=== PATIENT | male | born 1990 | race Caucasian/White ===

== ENCOUNTER → 2016-08-17 | Outpatient (CLI) | payer OTHER | END | disposition home or self-care (01) | LOC: MW.CHFP 14:48 | PROVIDERS: ATTEND Family Medicine | DX: E07.9 Disorder of thyroid, unspecified (principal) | CPT/HCPCS: 36415; 84439; 84443; 84445; 84481; 86376; 86800; 93005 ==

== ENCOUNTER → 2016-08-30 | Outpatient (CLI) | payer OTHER | END | disposition home or self-care (01) | LOC: MW.MNT 13:11 | PROVIDERS: ATTEND Family Medicine | DX: E66.09 Other obesity due to excess calories (principal); Z68.41 Body mass index [BMI] 40.0-44.9, adult | CPT/HCPCS: 97802 ==

== ENCOUNTER 2019-06-17 14:25 | Observation (INO) | payer BC, OTHER ==
[2019-06-17] MEDS ORDERED: Aspirin 81 MG Tab.Chew PO ONE (15:23)
--- NOTE | 2019-06-17 15:34 | CR ---
Chest: 2 views of the chest were obtained. Comparison: No prior chest imaging. Heart size and mediastinum are normal. Lungs are clear with no acute parenchymal change. Bony structures appear within normal limits for the patient's age. Impression: 1. Nothing acute is appreciated on 2 view chest x-ray. Diagnostic code #1 This report was dictated in [place] Standard Time
[2019-06-17 15:46] LABS: BLOOD UREA NITROGEN,BUN 13 mg/dL (7.0-18.0); CARBON DIOXIDE,CO2 26.4 mmol/L (21.0-32.0); CHLORIDE,CL 105 mmol/L (98-107); GLUCOSE RANDOM 102 mg/dL (74-106); LIPASE 84 U/L (73-393); POTASSIUM,K 4.1 mmol/L (3.5-5.1); SODIUM,NA 139 mmol/L (136-148)
--- NOTE | 2019-06-17 16:32 | EDM.PDOC ---
ED [facility] GENERAL MEDICAL PROBLEM - General Chief Complaint: Chest Pain Stated Complaint: CHEST PAIN Time Seen by Provider: 06/17/19 14:31 - History of Present Illness INITIAL COMMENTS - FREE TEXT/NARRATIVE: HPI 29-year-old obese male smoker presents for evaluation of ~3 weeks of poorly characterized left-sided substernal chest squeezing that is worsened by physical activity and relieved by rest is more significant today. No fevers, chills, cough, prior DVT or PE. Patient denies recent immobilization, leg trauma , estrogen use, surgery in the last four weeks, hemoptysis, or malignancy in the last 6 months. M/S/F/SocHx notable for: please see HPI; remainder reviewed with patient and in chart. ROS: Negative constitutional, eye, cardiovascular, pulmonary, GI, , MSK, skin , neurologic, psychiatric, endocrine unless noted in the HPI. Exam HR 79, RR 17, BP 151/101 T 36.2C, SaO2 96% on room air. Gen: Pleasant, non-toxic appearing, resting comfortably. HEENT: NC, AT, PEERL, EOMI. Resp: Clear to auscultation bilaterally, normal work of breathing. Card: RRR with no M/R/G, no crackles in lung bases, no pedal edema, no JVD appreciated. GI: NT/ND Vascular: Both ankles, calves, and thighs of equal size, no calf tenderness to palpation bilaterally. MSK: No chest wall TTP. No visible deformities, strength and tone WNL. Skin: Normal color with no visible lesions. Neuro: AO x 3, no facial asymmetry, vision and hearing WNL. Psych: Mood and affect appropriate. Labs / Imaging (pertinent): WBC 5.76, Hb 15.2, Na 139, K 4.1, AST 19, ALT 38, total bilirubin 0.4, alkaline phosphatase 63. Troponin <0.050 d-dimer 0.33. EKG: SR at 76 bpm, no KY segment depressions, nonspecific (~0.5 mm) ST segment elevation in lead II, III, and aVF. No further ST segment elevations or depressions, QTc 420 ms. CXR: No acute cardiopulmonary disease process. MDM Previous chart, nursing note, and vitals reviewed. A: 29-year-old obese male smoker presents for evaluation of ~3 weeks of poorly characterized left-sided substernal chest squeezing that is worsened by physical activity and relieved by rest is more significant today. DDx and Evaluation: * ACS - doubt ACS given a non-ischemic EKG and a negative initial troponin. * UA - unlikely given the atypical history and alternate diagnosis. HEART score value (Hx - 1, EKG - 1, age - 0, risk factors - 2, troponin - 0; 30 day MACE: 12 -16.6%). * Pericarditis - consider pericarditis unlikely given the lack of KY segment depressions as well as the absence of diffuse ST-segment elevations, lack of reduction of pain when supine, and lack of a friction rub. * Myocarditis - unlikely given the negative troponin and an EKG without characteristic KY-segment or ST-segment changes. * Dissection - dissection is unlikely given symptoms, and lack of mediastinal widening. * PE - low clinical suspicion given history and alternate diagnosis, further risk stratification (e.g.) Well's not indicated. * Mediastinal Air - no evidence by CXR or auscultation. * Pneumothorax - no evidence by CXR or physical exam. * MSK - doubt given lack of reproducibility on exam. * Endocarditis - no identifiable risk factors, patient afebrile, no new murmurs appreciated on exam; doubt. * GI (Esophageal rupture, GERD) - esophageal rupture effectively excluded given the lack of mediastinal widening, non-toxic appearance, and lack of identifiable risk factors. While not definitively excluded, further evaluation of GERD is deferred to an outpatient setting. ED Course: Patient given ASA. Vital signs remained stable and within clinically acceptable limits. Disposition: given the elevated HEART score the patient was admitted for further care and disposition as appropriate. Impression: Chest Pain. - Related Data Allergies Allergy/AdvReac Type Severity Reaction Status Date / Time No Known Allergies Allergy Verified 06/17/19 14:31 Home Meds: Home Meds . [No Known Home Meds] 06/17/19 [History] Past Medical History - Infectious Disease History Infectious Disease History: Reports: Chicken Pox - Past Surgical History GI Surgical History: Reports: Appendectomy Social & Family History - Family History Family Medical History: Noncontributory - Tobacco Use Smoking Status *Q: Current Every Day Smoker Years of Tobacco use: 10 Packs/Tins Daily: 0.5 - Caffeine Use Caffeine Use: Reports: Coffee - Recreational Drug Use Recreational Drug Use: Yes Recreational Drug Type: Reports: Marijuana/Hashish Recreational Drug Use Frequency: Monthly ED ROS GENERAL - Review of Systems Review Of Systems: See Below ED EXAM, GENERAL - Physical Exam Exam: See Below Course - Vital Signs Last Recorded V/S: Last Vital Signs Temp 36.2 C 06/17/19 14:31 Pulse 79 06/17/19 14:31 Resp 17 06/17/19 14:31 BP 151/101 H 06/17/19 14:31 Pulse Ox 96 06/17/19 14:31 - Orders/Labs/Meds Orders: Active Orders 24 hr Category Date Time Status Patient Status [ADT] Stat ADT 06/17/19 16:28 Ordered EKG 12 Lead [EKG Documentation Completion] [RC] STAT Care 06/17/19 15:09 Active Labs: Laboratory Tests 06/17/19 06/17/19 06/17/19 Range/Units 15:13 15:13 15:13 WBC 5.76 (4.0-11.0) K/uL RBC 4.96 (4.50-5.90) M/uL Hgb 15.2 (13.0-17.0) g/dL Hct 44.1 (38.0-50.0) % MCV 88.9 (80.0-98.0) fL MCH 30.6 (27.0-32.0) pg MCHC 34.5 (31.0-37.0) g/dL RDW Std Deviation 43.3 (28.0-62.0) fl RDW Coeff of Christian 13 (11.0-15.0) % Plt Count 206 (150-400) K/uL MPV 9.80 (7.40-12.00) fL Neut % (Auto) 64.4 (48.0-80.0) % Lymph % (Auto) 26.6 (16.0-40.0) % [place] % (Auto) 6.1 (0.0-15.0) % Eos % (Auto) 2.6 (0.0-7.0) % Baso % (Auto) 0.3 (0.0-1.5) % Neut # (Auto) 3.7 (1.4-5.7) K/uL Lymph # (Auto) 1.5 (0.6-2.4) K/uL [place] # (Auto) 0.4 (0.0-0.8) K/uL Eos # (Auto) 0.2 (0.0-0.7) K/uL Baso # (Auto) 0.0 (0.0-0.1) K/uL Nucleated RBC % 0.0 /100WBC Nucleated RBCs # 0 K/uL D-Dimer, Quantitative 0.33 (0.0-0.50) mg/L FEU Sodium 139 (136-148) mmol/L Potassium 4.1 (3.5-5.1) mmol/L Chloride 105 (98-107) mmol/L Carbon Dioxide 26.4 (21.0-32.0) mmol/L BUN 13 (7.0-18.0) mg/dL Creatinine 1.0 (0.8-1.3) mg/dL Est Cr Clr Drug Dosing 112.54 mL/min Estimated GFR (MDRD) > 60.0 ml/min Glucose 102 (74-106) mg/dL Calcium 8.8 (8.5-10.1) mg/dL Total Bilirubin 0.4 (0.2-1.0) mg/dL AST 19 (15-37) IU/L ALT 38 (14-63) IU/L Alkaline Phosphatase 63 (46-116) U/L Troponin I < 0.050 (0.000-0.056) ng/mL Total Protein 7.6 (6.4-8.2) g/dL Albumin 3.5 (3.4-5.0) g/dL Globulin 4.1 H (2.6-4.0) g/dL Albumin/Globulin Ratio 0.9 (0.9-1.6) Lipase 84 (73-393) U/L Meds: Medications Discontinued Medications Generic Name Dose Route Start Last Admin Trade Name Freq PRN Reason Stop Dose Admin Aspirin 324 mg 06/17/19 15:23 06/17/19 15:30 Aspirin PO 06/17/19 15:24 324 mg ONETIME ONE Administration Departure - Departure Time of Disposition: 16:29 Disposition: Admitted As Inpatient 66 Clinical Impression: Chest pain - Discharge Information Referrals: PCP,None [Primary Care Provider] - Sepsis Event Note - Evaluation Sepsis Screening Result: No Definite Risk - Focused Exam Vital Signs: Vital Signs Temp Pulse Resp BP Pulse Ox 06/17/19 14:31 36.2 C 79 17 151/101 H 96 Date Exam was Performed: 06/17/19 Time Exam was Performed: 16:29 - My Orders Last 24 Hours: My Active Orders 06/17/19 15:09 EKG 12 Lead [EKG Documentation Completion] [RC] STAT 06/17/19 16:28 Patient Status [ADT] Stat - Assessment/Plan Last 24 Hours: My Active Orders 06/17/19 15:09 EKG 12 Lead [EKG Documentation Completion] [RC] STAT 06/17/19 16:28 Patient Status [ADT] Stat
[2019-06-17] MEDS ORDERED: Pantoprazole 40 MG in Sodium Chloride 0.9% 10 ML IV ONE (16:57)
--- NOTE | 2019-06-17 17:04 | PCM.HP.2 ---
H&P History of Present Illness - General Date of Service: 06/17/19 Admit Problem/Dx: Admission Diagnosis/Problem Admission Diagnosis/Problem Chest pain - History of Present Illness Initial Comments - Free Text/Narative: 29 yo male who presents with three day history of chest pain. Patient reports his chest pain as substernal nonradiating with no associate symptoms of shortness of breath, lightheadedness or cough. Patient describes the pain as a squeeze. PAtient also reports worsening of his heart burn that radiates to the neck that is causing him to vomit. - Related Data Allergies/Adverse Reactions: Allergies Allergy/AdvReac Type Severity Reaction Status Date / Time pumpkin Allergy Rash Verified 06/17/19 18:34 Home Medications: Home Meds Famotidine [Pepcid] 06/17/19 [History] Past Medical History - Infectious Disease History Infectious Disease History: Reports: Chicken Pox - Past Surgical History GI Surgical History: Reports: Appendectomy Social & Family History - Family History Family Medical History: Noncontributory - Tobacco Use Smoking Status *Q: Current Every Day Smoker Years of Tobacco use: 10 Packs/Tins Daily: 0.5 - Caffeine Use Caffeine Use: Reports: Coffee - Recreational Drug Use Recreational Drug Use: Yes Recreational Drug Type: Reports: Marijuana/Hashish Recreational Drug Use Frequency: Monthly H&P Review of Systems - Review of Systems: Review Of Systems: Comprehensive ROS is negative, except as noted in HPI. Exam - Exam Exam: See Below - Vital Signs Vital Signs: Last Vital Signs Temp 36.2 C 06/17/19 14:31 Pulse 79 06/17/19 14:31 Resp 17 06/17/19 14:31 BP 151/101 H 06/17/19 14:31 Pulse Ox 96 06/17/19 14:31 Weight: 136.078 kg - Exam General: Alert, Oriented HEENT: Posterior Pharynx Clear Neck: Supple Lungs: Clear to Auscultation, Normal Respiratory Effort Cardiovascular: Regular Rate, Regular Rhythm GI/Abdominal Exam: Normal Bowel Sounds, Soft, Non-Tender Extremities: Non-Tender, No Pedal Edema Skin: Warm, Dry, Intact Neurological: Cranial Nerves Intact, Normal Gait - Patient Data Lab Results Last 24 hrs: Laboratory Results - last 24 hr 06/17/19 06/17/19 06/17/19 Range/Units 15:13 15:13 15:13 WBC 5.76 (4.0-11.0) K/uL RBC 4.96 (4.50-5.90) M/uL Hgb 15.2 (13.0-17.0) g/dL Hct 44.1 (38.0-50.0) % MCV 88.9 (80.0-98.0) fL MCH 30.6 (27.0-32.0) pg MCHC 34.5 (31.0-37.0) g/dL RDW Std Deviation 43.3 (28.0-62.0) fl RDW Coeff of Christian 13 (11.0-15.0) % Plt Count 206 (150-400) K/uL MPV 9.80 (7.40-12.00) fL Neut % (Auto) 64.4 (48.0-80.0) % Lymph % (Auto) 26.6 (16.0-40.0) % [place] % (Auto) 6.1 (0.0-15.0) % Eos % (Auto) 2.6 (0.0-7.0) % Baso % (Auto) 0.3 (0.0-1.5) % Neut # (Auto) 3.7 (1.4-5.7) K/uL Lymph # (Auto) 1.5 (0.6-2.4) K/uL [place] # (Auto) 0.4 (0.0-0.8) K/uL Eos # (Auto) 0.2 (0.0-0.7) K/uL Baso # (Auto) 0.0 (0.0-0.1) K/uL Nucleated RBC % 0.0 /100WBC Nucleated RBCs # 0 K/uL D-Dimer, Quantitative 0.33 (0.0-0.50) mg/L FEU Sodium 139 (136-148) mmol/L Potassium 4.1 (3.5-5.1) mmol/L Chloride 105 (98-107) mmol/L Carbon Dioxide 26.4 (21.0-32.0) mmol/L BUN 13 (7.0-18.0) mg/dL Creatinine 1.0 (0.8-1.3) mg/dL Est Cr Clr Drug Dosing 112.54 mL/min Estimated GFR (MDRD) > 60.0 ml/min Glucose 102 (74-106) mg/dL Calcium 8.8 (8.5-10.1) mg/dL Total Bilirubin 0.4 (0.2-1.0) mg/dL AST 19 (15-37) IU/L ALT 38 (14-63) IU/L Alkaline Phosphatase 63 (46-116) U/L Troponin I < 0.050 (0.000-0.056) ng/mL Total Protein 7.6 (6.4-8.2) g/dL Albumin 3.5 (3.4-5.0) g/dL Globulin 4.1 H (2.6-4.0) g/dL Albumin/Globulin Ratio 0.9 (0.9-1.6) Lipase 84 (73-393) U/L Result Diagrams: 06/17/19 15:13 06/17/19 15:13 Sepsis Event Note - Evaluation Sepsis Screening Result: No Definite Risk - Focused Exam Vital Signs: Vital Signs Temp Pulse Resp BP Pulse Ox 06/17/19 14:31 36.2 C 79 17 151/101 H 96 Date Exam was Performed: 06/19/19 Time Exam was Performed: 16:21 Problem List Initiated/Reviewed/Updated: Yes Orders Last 24hrs: Active Orders 24 hr Category Date Time Status Patient Status [ADT] Stat ADT 06/17/19 16:28 Active Antiembolic Devices [RC] PER UNIT ROUTINE Care 06/17/19 16:58 Ordered EKG 12 Lead [EKG Documentation Completion] [RC] STAT Care 06/17/19 15:09 Active Oxygen Therapy [RC] PRN Care 06/17/19 16:57 Ordered Up ad Angelika [RC] ASDIRECTED Care 06/17/19 16:57 Ordered VTE/DVT Education [RC] PER UNIT ROUTINE Care 06/17/19 16:57 Ordered Vital Signs [RC] Q4H Care 06/17/19 16:57 Ordered Regular Diet [DIET] Diet 06/17/19 Breakfast Ordered TROPONIN I [CHEM] Q6H Lab 06/17/19 21:00 Ordered TROPONIN I [CHEM] Q6H Lab 06/18/19 03:00 Ordered Sequential Compression Device [OM.PC] Per Unit Routine Oth 06/17/19 16:58 Ordered Resuscitation Status Routine Resus Stat 06/17/19 16:57 Ordered Assessment/Plan Comment:: 29 yo male who presented with chest pain. I suspect pain is GI in origin. ER provider requested admission to rule out acute coronary syndrome due to his risk factors. We will trend cardiac enzymes and monitor on telemetry.
[2019-06-17] MEDS ORDERED: LORazepam 2 MG/ML SDV IM PRN (18:37)
[2019-06-17] MEDS ORDERED: Nicotine 14 MG/24 Hr Patch TRDERM PRN (18:37)
[2019-06-17] MEDS ORDERED: LORazepam 2 MG/ML SDV IVPUSH PRN (19:02)
[2019-06-17] MEDS: Folic Acid/Vitamin B Complex With C Cap PO SCH (19:57)
[2019-06-18] MEDS ORDERED: Pantoprazole 40 MG in Sodium Chloride 0.9% 10 ML IV ONE (08:56)
[2019-06-18] MEDS: Folic Acid/Vitamin B Complex With C Cap PO SCH (09:05)
[2019-06-18] MEDS ORDERED: Acetaminophen 325 MG Tab PO PRN (09:12)
--- NOTE | 2019-06-18 09:14 | PCM.DCSUM1 ---
Discharge Summary - Hospital Course Brief History: 29 yo male who presents with three day history of chest pain. Patient reports his chest pain as substernal nonradiating with no associate symptoms of shortness of breath, lightheadedness or cough. Patient describes the pain as a squeeze. PAtient also reports worsening of his heart burn that radiates to the neck that is causing him to vomit. Diagnosis: Stroke: No - Discharge Data Discharge Date: 06/18/19 Discharge Disposition: Home, Self-Care 01 Condition: Good - Referral to Home Health Primary Care Physician: PCP None - Patient Instructions Diet: Usual Diet as Tolerated Activity: As Tolerated Driving: May Drive Today Showering/Bathing: May Shower Notify Provider of: Fever, Increased Pain, Swelling and Redness, Drainage, Nausea and/or Vomiting - Discharge Plan *PRESCRIPTION DRUG MONITORING PROGRAM REVIEWED*: Not Applicable *COPY OF PRESCRIPTION DRUG MONITORING REPORT IN PATIENT LIBORIO: Not Applicable Home Medications: Home Meds Famotidine [Pepcid] 06/17/19 [History] Oxygen Therapy Mode: Room Air Patient Handouts: Nonspecific Chest Pain, [id number] Referrals: [facility] [Outside] Caitie Coy MD [Resident] - 06/23/19 1:30 pm - Discharge Summary/Plan Comment DC Time >30 min.: No Discharge Summary/Plan Comment: Admitting Diagnoses: Atypical chest pain Discharge Diagnoses: Atypical chest pain- resolved heartburn [facility] was admitted for atypical chest pain. Troponins were trended, and were normal. EKG and telemetry SR with no ischemic changes. No further chest pain today. No heartburn either. He is requesting discharge home. Pain likely related to heartburn. Will arrange follow up with PCP, recommended trialling Prilosec x 2 weeks, minimizing acidic foods that irritate stomach for now. Avoid NSAIDs. He verbalized understanding. He is to return the ED or clinic sooner. - Patient Data Vitals - Most Recent: Last Vital Signs Temp 98.1 F 06/18/19 07:18 Pulse 90 06/18/19 07:18 Resp 18 06/18/19 07:18 BP 118/74 06/18/19 07:18 Pulse Ox 97 06/18/19 07:18 Weight - Most Recent: 137.8 kg I&O - Last 24 hours: Intake & Output 0306/18/19 06/18/19 22:59 06:59 14:59 Intake Total 840 Output Total 675 Balance 165 Lab Results - Last 24 hrs: Laboratory Results - last 24 hr 06/17/19 06/17/19 06/17/19 Range/Units 15:13 15:13 15:13 WBC 5.76 (4.0-11.0) K/uL RBC 4.96 (4.50-5.90) M/uL Hgb 15.2 (13.0-17.0) g/dL Hct 44.1 (38.0-50.0) % MCV 88.9 (80.0-98.0) fL MCH 30.6 (27.0-32.0) pg MCHC 34.5 (31.0-37.0) g/dL RDW Std Deviation 43.3 (28.0-62.0) fl RDW Coeff of Christian 13 (11.0-15.0) % Plt Count 206 (150-400) K/uL MPV 9.80 (7.40-12.00) fL Neut % (Auto) 64.4 (48.0-80.0) % Lymph % (Auto) 26.6 (16.0-40.0) % [place] % (Auto) 6.1 (0.0-15.0) % Eos % (Auto) 2.6 (0.0-7.0) % Baso % (Auto) 0.3 (0.0-1.5) % Neut # (Auto) 3.7 (1.4-5.7) K/uL Lymph # (Auto) 1.5 (0.6-2.4) K/uL [place] # (Auto) 0.4 (0.0-0.8) K/uL Eos # (Auto) 0.2 (0.0-0.7) K/uL Baso # (Auto) 0.0 (0.0-0.1) K/uL Nucleated RBC % 0.0 /100WBC Nucleated RBCs # 0 K/uL D-Dimer, Quantitative 0.33 (0.0-0.50) mg/L FEU Sodium 139 (136-148) mmol/L Potassium 4.1 (3.5-5.1) mmol/L Chloride 105 (98-107) mmol/L Carbon Dioxide 26.4 (21.0-32.0) mmol/L BUN 13 (7.0-18.0) mg/dL Creatinine 1.0 (0.8-1.3) mg/dL Est Cr Clr Drug Dosing 112.54 mL/min Estimated GFR (MDRD) > 60.0 ml/min Glucose 102 (74-106) mg/dL Calcium 8.8 (8.5-10.1) mg/dL Total Bilirubin 0.4 (0.2-1.0) mg/dL AST 19 (15-37) IU/L ALT 38 (14-63) IU/L Alkaline Phosphatase 63 (46-116) U/L Troponin I < 0.050 (0.000-0.056) ng/mL Total Protein 7.6 (6.4-8.2) g/dL Albumin 3.5 (3.4-5.0) g/dL Globulin 4.1 H (2.6-4.0) g/dL Albumin/Globulin Ratio 0.9 (0.9-1.6) Lipase 84 (73-393) U/L 06/17/19 06/18/19 Range/Units 20:59 03:02 WBC (4.0-11.0) K/uL RBC (4.50-5.90) M/uL Hgb (13.0-17.0) g/dL Hct (38.0-50.0) % MCV (80.0-98.0) fL MCH (27.0-32.0) pg MCHC (31.0-37.0) g/dL RDW Std Deviation (28.0-62.0) fl RDW Coeff of Christian (11.0-15.0) % Plt Count (150-400) K/uL MPV (7.40-12.00) fL Neut % (Auto) (48.0-80.0) % Lymph % (Auto) (16.0-40.0) % [place] % (Auto) (0.0-15.0) % Eos % (Auto) (0.0-7.0) % Baso % (Auto) (0.0-1.5) % Neut # (Auto) (1.4-5.7) K/uL Lymph # (Auto) (0.6-2.4) K/uL [place] # (Auto) (0.0-0.8) K/uL Eos # (Auto) (0.0-0.7) K/uL Baso # (Auto) (0.0-0.1) K/uL Nucleated RBC % /100WBC Nucleated RBCs # K/uL D-Dimer, Quantitative (0.0-0.50) mg/L FEU Sodium (136-148) mmol/L Potassium (3.5-5.1) mmol/L Chloride (98-107) mmol/L Carbon Dioxide (21.0-32.0) mmol/L BUN (7.0-18.0) mg/dL Creatinine (0.8-1.3) mg/dL Est Cr Clr Drug Dosing mL/min Estimated GFR (MDRD) ml/min Glucose (74-106) mg/dL Calcium (8.5-10.1) mg/dL Total Bilirubin (0.2-1.0) mg/dL AST (15-37) IU/L ALT (14-63) IU/L Alkaline Phosphatase (46-116) U/L Troponin I < 0.050 < 0.050 (0.000-0.056) ng/mL Total Protein (6.4-8.2) g/dL Albumin (3.4-5.0) g/dL Globulin (2.6-4.0) g/dL Albumin/Globulin Ratio (0.9-1.6) Lipase (73-393) U/L Med Orders - Current: Current Medications Acetaminophen (Tylenol) 650 mg PO Q4H PRN PRN Reason: Pain Lorazepam (Ativan) 0 mg IVPUSH Q4H PRN; Protocol PRN Reason: Withdrawal Symptoms Multivit/Ca Carb/B Cmplx/FA/Prenat (Renal Caps Softgel) 1 cap PO DAILY MIRANDA Last Admin: 06/18/19 09:05 Dose: 1 cap Nicotine (Habitrol) 14 mg TRDERM DAILY PRN PRN Reason: Other Discontinued Medications Aspirin (Aspirin) 324 mg PO ONETIME ONE Stop: 06/17/19 15:24 Last Admin: 06/17/19 15:30 Dose: 324 mg Pantoprazole Sodium 40 mg/ (Sodium Chloride) 10 mls @ 300 mls/hr IV NOW ONE Stop: 06/17/19 16:58 Last Admin: 06/17/19 17:51 Dose: 300 mls/hr Pantoprazole Sodium 40 mg/ (Sodium Chloride) 10 mls @ 300 mls/hr IV NOW ONE Stop: 06/18/19 08:57 Last Admin: 06/18/19 09:05 Dose: 300 mls/hr Lorazepam (Ativan) 0 mg IM Q4H PRN; Protocol PRN Reason: Withdrawal Symptoms
== END 2019-06-18 11:24 | disposition home or self-care (01) ==
LOC: MW.ED 14:25 → MW.MS 16:28
PROVIDERS: ADMIT Internal Medicine; ATTEND Internal Medicine
DX: R07.89 Other chest pain (principal); R12 Heartburn; F17.200 Nicotine dependence, unspecified, uncomplicated; Z91.018 Allergy to other foods
CPT/HCPCS: 36415; 71046; 80053; 83690; 84484; 85025; 85379; 93005; 96374; 96376; 99285; A9270; C9113; G0378; J7050; 99283